=== PATIENT | female | born 1960 | race Caucasian/White ===

== ENCOUNTER 2018-12-01 14:30 | Inpatient (IN) | payer OTHER ==
[2018-11-30 12:17] LABS: URINE BILIRUBIN NEGATIVE (Negative); URINE BLOOD 2+ (Negative); URINE CLARITY CLEAR; URINE COLOR YELLOW; URINE GLUCOSE-RANDOM* 3+ (Negative); URINE KETONES NEGATIVE (Negative); URINE LEUKOCYTES-REFLEX NEGATIVE (Negative); URINE NITRITE-REFLEX NEGATIVE (Negative); URINE PROTEIN (DIPSTICK) NEGATIVE (Negative); URINE SPECIFIC GRAVITY 1.025 (1.005-1.035); URINE UROBILINOGEN 0.2 E.U./dl (0.2-1.0)
[2018-11-30 12:28] LABS: CASTS None Seen /LPF (None Seen); SQUAMOUS 4-10 Moderate /LPF (0-3)
[2018-11-30 12:29] LABS: BACTERIA-REFLEX None Seen /HPF (None Seen); CRYSTALS None Seen /LPF (None Seen); URINE RBC 3-10 Few /HPF (0-2); URINE WBC-REFLEX 0-5 Rare /HPF (0-5)
[2018-11-30 12:53] LABS: ABSOLUTE NEUTROPHILS 3.6 thou/uL (1.4-8.2); BASOPHILS 1.2 % (0.0-2.0); EOSINOPHILS 2.3 % (0.0-3.0); HEMATOCRIT 42.7 % (37.0-47.0); HEMOGLOBIN 14.2 gm/dL (12.0-15.0); LYMPHOCYTES 16.1 % (24.0-44.0); MCH 30.1 pg (26.0-34.0); MCHC 33.2 g/dL (28.0-37.0); MCV 90.7 fL (80.0-100.0); MONOCYTES 6.7 % (1.0-8.0); PLATELET COUNT 200 thou/uL (150-400); POLYS 73.7 % (36.0-66.0); RDW 14.9 % (10.5-14.5); WBC 4.9 thou/uL (4.0-11.0)
[2018-11-30 13:06] LABS: APTT 28.5 Seconds (24.5-32.8); PROTIME 9.9 Seconds (9.3-11.4)
[2018-11-30 13:07] LABS: ALBUMIN 2.6 g/dL (3.4-5.0); CREATININE 0.8 mg/dL (0.6-1.0); POTASSIUM 4.8 mmol/L (3.5-5.1); TOTAL BILIRUBIN 0.2 mg/dL (<0.1-1.0); TOTAL PROTEIN 6.6 g/dL (6.4-8.2)
[~2018-12-01] VITALS: Ht 82.1 cm; Wt 60.5 kg
[~2018-12-01 14:30] MED LIST: ALPRAZOLAM 0.50.5 M1 PO; ALPRAZOLAM 0.50.5 MG PO; ALTACE 1.25 M1.25 M1 PO; ALTACE5 MG PO; AMBIEN 10 MG TA10 MG PO; ASPIRIN EC81 M1 PO; ASPIRIN325 PO; ATORVASTATIN CA40 MG PO; BACTROBAN CREAM30 G1 TOP; BACTROBAN22 GM; BEVESPI AEROS10.7 GM INH; CALCIUM 600 +1 EAC2 PO; CARVEDILOL12.5 MG PO; CARVEDILOL6.25 MG PO; COREG6.25 MG PO; CYMBALTA30 MG PO; CYMBALTA60 MG PO; DILTIAZEM 24HR240 M1 PO; ELIQUIS5 MG PO; HYDROCODON-ACE1 EAC2 PO; KEFLEX500 M1 PO; LANTUS100 UNIT/M PO; LASIX 20 MG TAB20 MG PO; LEVAQUIN 500 M500 M2 PO; LEVEMIR SUBQ; MAGOX 400400 MG PO; METHIMAZOLE5 MG PO; MULTIVITAMINS1 EAC7 PO; NORVASC5 MG PO; NOVOLOG FL100 UNIT/M SUBQ; NOVOLOG100 UNIT/1; NOVOLOG100 UNIT/1 SUBQ; NYSTATIN15 GM; OMEPRAZOLE40 MG PO; PACERONE200 MG PO; PHENERGAN 25 MG25 M1 PO; PRADAXA150 MG PO; PRILOSEC20 MG PO; PRILOSEC40 MG PO; PROAIR HFA8.5 GM INH; SEROQUEL 50 MG50 M1 PO; SERTRALINE HCL100 MG PO; SYNTHROID137 MC1 PO; TAPAZOLE10 MG PO; TRIAMCINOLONE A80 G2 TOP; TYLENOL325 MG PO; ZOLOFT100 MG PO; ZOLOFT50 MG PO
[2018-12-12] VITALS (17 sets, daily range): BP systolic 97–159; BP diastolic 53–79
[2018-12-12 17:38] LABS: HCO3 19.5 mmol/L (22.0-26.0); PCO2 42.8 mmHg (35.0-45.0); PO2 86.9 mmHg (80.0-100.0); sO2 95.5 % (92.0-98.0)
[2018-12-12 17:40] LABS: pH 7.277 (7.360-7.450)
[2018-12-12 17:51] LABS: HEMATOCRIT 39.4 % (37.0-47.0); HEMOGLOBIN 12.9 gm/dL (12.0-15.0); MCHC 32.7 g/dL (28.0-37.0); MCV 91.9 fL (80.0-100.0); RBC 4.29 mil/uL (4.20-5.00); RDW 15.4 % (10.5-14.5); WBC 12.7 thou/uL (4.0-11.0)
[2018-12-12 17:56] LABS: CALCIUM 7.6 mg/dL (8.5-10.1); CREATININE 0.8 mg/dL (0.6-1.0); POTASSIUM 4.5 mmol/L (3.5-5.1)
--- NOTE | 2018-12-12 19:00 | NUR ---
PT RECEIVED IN ICU #238, ON ICU BED WITH SENIOR CONTROLS TECHNICIAN AND ACCOMPANIED BY ROBOTICS SYSTEMS ENGINEER AND TRANSPORTER. REPORT RECEIVED FROM ROBOTICS SYSTEMS ENGINEER. SEE ASSESSMENT FOR DETAILS. EPIDURAL INFUSING WITH INSERTION SITE AND DRESSING INTACT, CIRCULATION, SENSATION AND MOTION PRESENT IN KEYUR LOWER EXTREMITIES, R LATERAL CHEST/BACK DISCOMFORT WHEN AWAKE THEN PT DOZES BACK TO SLEEP WHEN WITHOUT ANY STIMULATION. SR, R RADIAL OSMIN WITH OPTIMAL WAVEFORM, CARDENE 2.5 MG/HR TO KEEP SBP <160, INSULIN GTT 4 UNITS/HR WITH GLUCOSE GOAL 90-130, ROOM AIR INITIALLY THEN PLACED ON 2 L/NC, BREATHING SHALLOW INTERMITTENTLY, TAKING DEEP BREATHS AND COUGH WHILE SPLINTING CHEST/SIDE, TOLERATING ICE CHIPS, RODGERS ADEQUATE URINE OUTPUT. FAMILY PRESENT TO SEE PT, PROVIDING SUPPORT. PT PROGRESSING.
[2018-12-12 21:23] LABS: BE(vivo) -8.6 mmol/L (-2 to +3); HCO3 16.6 mmol/L (22.0-26.0); PCO2 33.8 mmHg (35.0-45.0); PO2 90.5 mmHg (80.0-100.0); sO2 96.3 % (92.0-98.0)
[2018-12-13 01:42] VITALS: BP 100/49
[2018-12-13 01:55] VITALS: BP 93/42
[2018-12-13 06:09] LABS: HEMOGLOBIN 11.4 gm/dL (12.0-15.0); MCH 30.4 pg (26.0-34.0); MCHC 33.6 g/dL (28.0-37.0); MCV 90.6 fL (80.0-100.0); RBC 3.76 mil/uL (4.20-5.00); RDW 15.7 % (10.5-14.5); WBC 9.2 thou/uL (4.0-11.0)
[2018-12-13 06:50] VITALS: BP 101/46
[2018-12-13 06:50] LABS: ALBUMIN 1.9 g/dL (3.4-5.0); CALCIUM 7.2 mg/dL (8.5-10.1); CREATININE 0.7 mg/dL (0.6-1.0); POTASSIUM 3.9 mmol/L (3.5-5.1); TOTAL BILIRUBIN 0.2 mg/dL (<0.1-1.0); TOTAL PROTEIN 5.5 g/dL (6.4-8.2)
--- NOTE | 2018-12-13 07:13 | NUR ---
CLIENT REMAINS IN THE ICU POST RIGHT LOBECTOMY. CLIENT CARE ASSUMED 12/12/18 @ 1900. CLIENT A/O X3 ABLE TO RESPOND TO CARE & DROWSY. CLIENT IS SINUS RHYTHM PER MONITOR. SCD TO BLE, 2L/NC ABD HAS ICE CHIPS FOR DIET ORDERS. RODGERS TO DD AND RIGHT SIDED PLEURAL, Y TUBE, CHEST TUBE. RIGHT RADIAL A-LINE AND RIGHT TJ TLC, LEFT 22" GUAGE PIV. CLIENT IS ON A INSULIN GTT, CARDENE GTT, AND RECEIVING ROPIVACAINE EPIDURAL. AFIBRILE DURING THE NIGHT. PLEASE SEE [employer] FOR ANY ADDITONAL QUESTIONS OR CONCERNS.
[2018-12-13 08:00] VITALS: BP 107/53
--- NOTE | 2018-12-13 09:21 | NUR ---
Nutrition: Consult received due to IDDM, S/P Right lobectomy for lung mass. Pt with good BG control and reports good control/dietary compliance at home, regular dr visits. Stable weights and good appetite. Adequate protein sources encouraged. Mid pannus wound documented which pt reported was from a cyst removal. Pt voices no education needs.Will offer glucerna once daily, low risk
--- NOTE | 2018-12-13 10:45 | NUR ---
SEE ASSESSMENT FOR DETAILS. REPORT GIVEN TO LEONILA CABEZAS. TRANSFERRED TO CCU #211 PER ICU BED WITH RISK PREVENTION ENGINEER.
--- NOTE | 2018-12-13 14:19 | NUR ---
WOUND CONSULT: PT. WAS SEEN TODAY BY DR. MCKENZIE AND MYSELF. PT. HAD A ABCESS I&D BY DR. INTERIANO IN [facility]. 2 WEEKS AGO RIGHT ABOVE THE PUBIC BONE. WOUND BED IS HEALTHY IN APPEARANCE AND HEALING WELL. RECOMMENDATIONS: WOUND CARE TO ABOVE THE PUBIC BONE: GENTLY CLEANSE, APPLY PURACOL AG TO WOUND BED, COVER WITH OPTIFOAM BOARDER, COMPLETE CARES DAILY AND PRN. PT. AND STAFF NURSE WERE INSTRUCTED ON PLAN OF CARE.
[2018-12-13 15:29] VITALS: BP 130/58
--- NOTE | 2018-12-13 17:17 | NUR ---
CM ASSESMENT: CASE OPENED FOR DC PLANNING. PT IS POD #1 THORACOTOMY. PT LIVES WITH SPOUSE IN HOUSE AND INDEPENDENT WITH ADLS. MEDICALLY DISABLED R/T DM AND COMORBIDITIES. PT HAS WALKER AT HOME IF NEEDED. PT IS WORKING WITH P.T. AND RECOMMENDATION IS HOME WITH [facility]. PT'S PCP IS HARITHA LEIVA, ALSO SEES DR. WING AND DR. GEOFF COVINGTON. WILL FOLLOW TO COORDINATED NEEDS DC, POSSIBLE HOME HEALTH.
--- NOTE | 2018-12-13 18:21 | NUR ---
ARRIVED FROM ICU ABOUT 1045. AAOX3 VERY PLEASANT AND COOPERATIVE. EPIDURAL AT 9ml/hr transparent dressing dry and intact. RIGHT THORACOTOMY DRESSING DRY AND INTACT. RIGHT CT X2 TO OASIS WITH SUCTION NO AIR LEAK NOTED. O2 AT 2L. UP WITH PHYSICIAL THERAPY AND UP FOR DINNER TO RECLINER. GOOD APPETITE. RIGHT JUGULAR TRIPLE LUMEN INTACT WITH NS AT 75CC/HR. GIVEN FENTANYL X2 FOR BREAK THROUGH PAIN.
[2018-12-13 19:23] VITALS: BP 91/51
[2018-12-14] VITALS (7 sets, daily range): BP systolic 108–159; BP diastolic 57–76
--- NOTE | 2018-12-14 03:13 | NUR ---
ASSUMED CARE 1899. VSS. ASSESSMENT CHARTED. PT C/O NON CARDIAC CHEST PAIN, EPIDURAL IN PLACE CDI WITH ROPIVACAINE AT 9 ML/HR, PARTIAL PAIN CONTROL. BP LOW PT SLIGHTLY DIZZY IN CHAIR, ASYMPTOMATIC IN BED , DR FAM AT BEDSIDE NOTIFIED, ORDERS GIVEN- HOLDING PM HEART MEDS, PT STATED HER SERAQUIL DROPS HER BP PM HELD- SEE EMAR. ANESTHISIA CAME TO PT BEDSIDE WAS OKAY TO KEEP ROPIVACAINE AT 9 ML/HR DUE TO BP, NS AT 75 ML/HR. CT X2 IN PLACE NO AIR LEAK, SLIGHT DRAINAGE AROUND DRESSING DR FAM PRESENT. RODGERS IN PLACE. 2 L N/C. X1 STAND BY. PLAN FOR EKG THIS AM. WILL CONTINUE TO MONITOR AND WITH POC.
[2018-12-14 11:01] LABS: HEMATOCRIT 36.6 % (37.0-47.0); HEMOGLOBIN 12.2 gm/dL (12.0-15.0); MCH 30.4 pg (26.0-34.0); MCHC 33.4 g/dL (28.0-37.0); MCV 91.1 fL (80.0-100.0); RBC 4.01 mil/uL (4.20-5.00); RDW 15.8 % (10.5-14.5); WBC 10.1 thou/uL (4.0-11.0)
[2018-12-14 11:12] LABS: CALCIUM 7.6 mg/dL (8.5-10.1); CREATININE 0.8 mg/dL (0.6-1.0); POTASSIUM 4.3 mmol/L (3.5-5.1)
--- NOTE | 2018-12-14 15:42 | NUR ---
WOUND FOLLOW UP: PT. WAS SEEN TODAY BY DR. MCKENZIE AND MYSELF. PT. WOUND IS C/D/I AT THIS TIME. PT. HAS NO COMPLAINTS. RECOMMENDATIONS: CONTINUE WITH CURRENT PLAN OF CARE. PT. AND STAFF NURSE WERE INSTRUCTED ON PLAN OF CARE.
--- NOTE | 2018-12-14 17:13 | EKG ---
[address] [place] [place] [address] ELECTROCARDIOGRAM REPORT Name: HIRAM JC Room #: 211-P ADM IN M.R.#: [id number] ������������������ Admission: 12/12/18 ������������������ Attend Phys: Dimitrios Valles MD Discharge: ������������������ Date of : 64 Report #: [id number] ����������������������������������������������������������������� [id number] THIS REPORT FOR: //name// [facility] Test Date: 2018-12-14 Test Time: 07:09:05 Pat Name: HIRAM JC Department: Room: 211 P Gender: F Fence Machine Operator: ANNA : 1960 Requested By: Onesimo Reece Order Number: [id number] MD: Enoch Baeza Measurements Intervals [place] Rate: 78 P: 51 [place]: 160 QRS: 62 QRSD: 116 T: -5 QT: 407 QTc: 464 Interpretive Statements Sinus rhythm Nonspecific T wave abnormality Compared to ECG 08/17/2016 18:13:35 No significant change was found Electronically Signed On 12-14-2018 17:13:31 CDT by Enoch Baeza [email or web address] ��������������������������������������������� <ELECTRONICALLY SIGNED> ���������������������������������������� By: Enoch Baeza MD, [facility] ��������������������������������������������� 12/14/18 1713 8 8 Enoch Baeza MD, [facility]ACC /EPI
--- NOTE | 2018-12-14 17:52 | NUR ---
SW reviewed chart and spoke with nursing. Pt is POD #2 of thoracotomy. Pt is progressing towards goals for discharge. Discharge home is anticipated for tomorrow. ISRAEL met with pt at bedside to discuss discharge plan. SW discussed possible need for HH services. Options discussed with pt. Pt is agreeable with HH if needed. No preference of HH agency. interstate planner to fax referral to [facility] tomorrow. Pt's PCP is Dr. Robert Humphries. Pt is currently on 1L of O2. Was not on O2 prior to admission. ISRAEL is following to assist as needed with discharge planning.
[2018-12-15 03:38] VITALS: BP 155/85
--- NOTE | 2018-12-15 04:16 | NUR ---
PT. ON CHAIR AT SHIFT CHANGE; NO C/O PAIN EARLY ON THE NIGHT OR DURING ASSESSMENT; ON 1.5 O2 L.; O2 SAT 99%; ABLE TO VOID AROUND 2300; 275 CC; DROWSY AT MIDNIGHT; VS WNL; ABLE TO REST DURING THE NIGHT; REQUESTED PRN PAIN MEDICATION EARLY ON THE MORNING; PRN PAIN MEDICATION GIVEN; ASSESSMENT CHARGED; FOLLOWING POC; WILL PASS ON REPORT.
[2018-12-15 08:11] VITALS: BP 152/71
[2018-12-15 09:38] VITALS: BP 127/45
--- NOTE | 2018-12-15 12:04 | NUR ---
FAXED REFERRAL TO [facility] SPOKE WITH MARV IN ADM. SHE WILL REVIEW REFERRAL ANTICIPATE DC 12/16. DCP TO FOLLOW.
[2018-12-15 12:09] VITALS: BP 113/49
--- NOTE | 2018-12-15 12:18 | NUR ---
SW reviewed chart and spoke with nursing and attending physician. Pt is progressing towards goals for discharge. Pt does still have chest tube in place. Pt still requires O2. internet media planner sent info to [facility] . Discharge plan is for pt to return home with HH when medically stable. ISRAEL is following to assist as needed with discharge planning.
--- NOTE | 2018-12-15 13:18 | NUR ---
ASSUMED CARE AT 0700, SHIFT ASSESSMENT DONE, VSS. MEDS GIVEN. REPROTED PAIN TO SITE OF CHEST TUBE INSERTION, PRN PAIN MED GIVEN WITH PARTIAL RELIEF. ABLE TO TAKE ORAL MEDS. NSR ON TELE. WORKED WITH PHYSICAL THERAPHY, TIRED AND WEAK. PRODUCING SEROSANGUINIOUS DRANAGE THROUGH THE CHEST TUBE. PATIENT IS SUPPOSED TO GO TO OR FOR CHEST TUBE REMOVAL. WILL CONTINUE TO ASSESS AND ASSIST WITH ADLs NEEDED.
--- NOTE | 2018-12-15 14:00 | NUR ---
WOUND FOLLOW UP: PT. WAS SEEN TODAY BY DR. MCKENZIE AND MYSELF. PT. WOUND IS CLINICALLY BETTER TODAY. PT. IS PROGRESSING TOWARDS GOALS. RECOMMENDATIONS: CONTINUE WITH CURRENT PLAN OF CARE. PT. AND STAFF NURSE WERE INSTRUCTED ON PLAN OF CARE.
[2018-12-15 14:41] VITALS: BP 102/48
--- NOTE | 2018-12-15 15:24 | NUR ---
FAXED REFERRAL TO [facility] THEY COVER TIFFANY QUEZADA SPOKE WITH CORINE IN ADM. SHE RECEIVED REFERRAL AND WILL BE ABLE TO ACCEPT PT. AT DISCHARGE. POSS. DC TOMORROW. DCP TO FOLLOW.
--- NOTE | 2018-12-15 15:29 | NUR ---
PT. DISCHARGING TODAY TO [facility] FAXED DC ORDERS/SUMMARY TO FACILITY AND SPOKE WITH WEN IN ADM. SHE RECEIVED DC ORDERS AND SET UP TRANSPORT WC [facility] AT [phone]. SON AND UNIT NOTIFIED OF TIME OF TRANSPORT. CHART COPY PER US. RN TO CALL REPORT TO [phone].
--- NOTE | 2018-12-15 17:07 | PATH ---
[facility] [place] [address] PATHOLOGY RPT PROCEDURE Name: LUANA DALEY Cedric Room #: 211-P ADM IN M.R.#: [id number] ������������������ Admission: 12/12/18 ������������������ Date of : 64 Discharge: Report #: [id number] Path Case #: [id number] [facility] Accession Number: [id number] . 01 Material submitted: . PART A: 4 R LYMPH NODES PART B: RIGHT UPPER LUNG LOBE LESION BIOPSY PART C: RIGHT HILAR LYMPH NODES PART D: RIGHT UPPER LOBE LUNG PART E: SECOND HILAR NODE PART F: THIRD HILAR NODE PART TH HILAR NODE PART H: 5TH HILAR NODE PART I: 6TH HILAR NODE PART J: 7TH HILAR NODE PART K: 8TH HILAR NODE PART L: 9TH HILAR NODE . 01 Clinical history: . Right Lung Mass Lung cancer . 02 Diagnosis: A. Lymph nodes (fragments), 4R lymph nodes, biopsy: - Granulomatous inflammation with a focal well formed hyalinizaed granuloma as well as reactive changes showing histoplasma species on GMS fungal special stain. - AFB stain negative for mycobacterial organisms. - Negative for malignancy. . B. Lung, right upper lobe lung lesion, biopsy: - POORLY DIFFERENTIATED CARCINOMA WITH LARGE CELL FEATURES AND FOCAL NEUROENDOCRINE FEATURES (PLEASE SEE COMMENT). . C. Lymph nodes (fragments), right hilar lymph nodes, biopsy: - Reactive lymph nodes with pigmented macrophages. - Negative for malignancy. . D. Lung, right upper lobe of lung, lobectomy: - POORLY DIFFERENTIATED CARCINOMA WITH LARGE CELL FEATURES AND FOCAL NEUROENDOCRINE FEATURES (PLEASE SEE COMMENT), SEE SYNOPTIC REPORT BELOW. - Bronchial and vascular margin free of malignancy; closest bronchial margin is 1 cm away. . E. Lymph node (1), second hilar node, biopsy: - Reactive lymph node with pigmented macrophages. - Negative for malignancy. . [facility] [address] [place] [address] PATHOLOGY RPT PROCEDURE Name: LUANA DALEY Cedric Room #: 211-P ADM IN M.R.#: [id number] ������������������ Admission: 12/12/18 ������������������ Date of : 64 Discharge: Report #: [id number] Path Case #: [id number] F. Lymph node (fragments), third hilar node, biopsy: - Reactive lymph nodes with pigmented macrophages. - Negative for malignancy. . G. Lymph node (fragment), fourth hilar node, biopsy: - Reactive lymph node with pigmented macrophages. - Negative for malignancy. . H. Lymph node (fragment), fifth hilar node, biopsy: - Reactive lymph node with pigmented macrophages. - Negative for malignancy. . I. Lymph node (fragments), sixth hilar node, biopsy: - Reactive lymph nodes with pigmented macrophages. - Negative for malignancy. . J. Lymph node (fragment), seventh hilar node, biopsy: - Reactive lymph node with pigmented macrophages. - Negative for malignancy. . K. Lymph node (fragment), eighth hilar node, biopsy: - Reactive lymph node with pigmented macrophages. - Negative for malignancy. . L. Lymph node (fragment), ninth hilar node, biopsy: - Reactive lymph node with pigmented macrophages. - Negative for malignancy. . . Surgical Pathology Cancer Case Summary . Protocol posting date: February 2017 . 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 Histologic Grade- G3: Poorly differentiated Spread Through Air Spaces- Present Visceral Pleura Invasion- Not identified Lymphovascular Invasion- Not identified Direct Invasion of Adjacent Structures- No adjacent structures present Margins- All margins are uninvolved by tumor Margins examined: Bronchial, Vascular and Visceral Pleura Distance of invasive carcinoma from closest margin (centimeters): [address] [address] PATHOLOGY RPT PROCEDURE Name: LUANA DALEY Cedric Room #: 211-P [facility].#: [id number] ������������������ Admission: 12/12/18 ������������������ Date of : 64 Discharge: Report #: [id number] Path Case #: [id number] Specify closest margin: Bronchial Treatment Effect- No known presurgical therapy Regional Lymph Nodes- Number of Lymph Nodes Examined: 10 Specify bryan station(s) examined: Hilar nodes . Pathologic Stage Classification (pTNM, AJCC 8th Edition) . TNM Descriptors- None Primary Tumor (pT) pT1c: Tumor >2 cm but =3 cm in greatest dimension Regional Lymph Nodes (pN) pN0: No regional lymph node metastasis Distant Metastasis (pM): pMx (unknown) LBQ/12/15/2018 . 02 Comment: Examination of the needle core biopsy tissue showed a tumor that appeared poorly differentiated in sheets associated with numerous apoptotic bodies as well as mitotic figures. Central areas of expansile necrosis are present as well. Focal organoid features are identified. Immunohistochemical stains are performed on block B1. TTF-1, p63, Napsin A, and chromogranin are non-reactive. AE1/AE3 as well as CK7 showed membranous reactivity in addition to focal dot-like reactivity. Synaptophysin shows focal granular reactivity present supporting focal neuroendocrine features. . TTF-1 and synaptophysin are repeated on block D4 (to examine the immunohistochemistry in a larger focus of the tumor). The tumor is non-reactive to TTF-1. Intact internal control is present in the background with the alveolar spaces showing TTF-1 reactivity. Synaptophysin shows scant reactivity present. Mucicarmine is non-reactive thus arguing against an adenocarcinoma. Therefore, the tumor is highly suggestive of a poorly differentiated carcinoma with large cell morphology and focal neuroendocrine features. Dr. Leslee Che has seen international sales representative slides of this case and concurs with the diagnosis rendered. The preliminary findings of this case were discussed with Dr. Dimitrios Valles at approximately 4 p.m. on 12/13/18. (IUV/db; 12/15/2018) . 02 Electronically signed: . Tenisha Zabala MD, Pathologist NPI- [id number] . 01 Gross description: . A. Specimen received fresh from the OR labeled with the patient's name and "4 R lymph nodes", consists of multiple red-dey fragments of tissue measuring an aggregate of 0.5 x 0.5 x 0.3 cm. Submitted entirely for frozen section as FSA1, subsequently submitted for permanent section as [facility] [address] [place] [address] PATHOLOGY RPT PROCEDURE Name: LUANA DALEY Room #: 211-P ADM IN M.R.#: [id number] ������������������ Admission: 12/12/18 ������������������ Date of : 64 Discharge: Report #: [id number] Path Case #: [id number] A1. . B. Received fresh from the OR labeled with the patient's name and "right upper lung lobe lesion biopsy" and consists of three thin needle core biopsies of red-dey tissue measuring approximately 1 to 1.5 x 0.1 x 0.1 cm each. Submitted for frozen section entirely as FSB1, subsequently submitted for permanent sections as B1. (IUV:pit 12/12/2018) . C. The specimen is received in formalin, labeled "Luana Daley, right hilar lymph nodes", is an irregular fragment of possible anthracotic lymph node measuring 0.8 x 0.7 x 0.2 cm, bisected and entirely submitted in C1. ([facility]; 12/12/2018) . D.The specimen is received in formalin, labeled " Luana Daley, right upper lobe lung", is infused with 10% NBF and held overnight. ([facility]; 12/13/2018) . The specimen is grossed after overnight fixation and consists of a 206 g right upper lobe of lung with a 0.5 cm long bronchovascular stump. 2 stapled linear lines are present on the posterior aspect measuring 10.5 cm and 2.0 cm. The visceral pleura shows a 1.5 x 1.4 cm area of retraction (inked black) which extends 1.3 cm from the 10.5 cm stapled line. The rest of the visceral pleura is brown and intact. The long staple line is removed and inked blue. The main branch of the bronchus is opened to reveal no abnormality. Serial sectioning reveals a white circumscribed mass with central necrosis measuring 2.9 x 2.0 x 1.6 cm which extends 1.0 cm from the hilar bronchial margin. The uninvolved lung parenchyma has mild consolidation and is spongy red. No additional discrete masses, lesions, or lymph node candidates are identified. Mechanical Project Engineer sections are submitted as follows: . D1: Hilar bronchial vascular resection margin D2: Mass to bronchial margin D3: Mass to bronchus including blue inked staple resection line D4: Mass showing the black inked retraction of pleural surface D5: Full-thickness mass D6-D7: Uninvolved parenchyma showing mild consolidation ([facility]; 12/13/2018) . After initial microscopic examination the remainder of the mass is submitted in D8-D13. ([facility]Y; 12/14/2018) . E. The specimen is received in formalin, labeled "Edi Luana, second hilar node", is an irregular fragment of possible anthracotic lymph node measuring 1.1 x 0.5 x 0.3 cm, serially sectioned and entirely submitted in [address] [address] PATHOLOGY RPT PROCEDURE Name: EDILUANA Room #: 211-P ADM IN M.R.#: [id number] ������������������ Admission: 12/12/18 ������������������ Date of : 64 Discharge: Report #: [id number] Path Case #: [id number] E1. . F. The specimen is received in formalin, labeled "Luana Daley, third hilar node", are two irregular fragments of black-brown tissue measuring 0.4 x 0.3 x 0.1 cm and a 0.6 x 0.5 x 0.2 cm, entirely submitted in F1. . G. The specimen is received in formalin, labeled "Luana Daley, fourth hilar node", is an irregular fragment of a black-brown tissue measuring 0.5 x 0.4 x 0.2 cm, entirely submitted in G1. . H. The specimen is received in formalin, labeled "Luana Daley, fifth hilar node", is an irregular fragment of dark brown-black tissue measuring 1.0 x 0.8 x 0.3 cm, serially sectioned and entirely submitted in H1. . I. The specimen is received in formalin, labeled "Luana Daley, sixth hilar node", are two irregular fragments of dark black-brown tissue measuring 0.3 x 0.2 x 0.1 cm and 1.0 x 0.3 x 0.1 cm, entirely submitted in I1. . J. The specimen is received in formalin, labeled "Luana Daley, seventh hilar node", is an irregular fragment of dark black-brown tissue measuring 1.0 x 0.6 x 0.2 cm, serially sectioned and entirely submitted in J1. . K. The specimen is received in formalin, labeled "Luana Daley, eigth hilar node", is an irregular fragment of dark brown to black tissue measuring 0.5 x 0.4 x 0.2 cm, entirely submitted in K1. . L. The specimen is received in formalin, labeled "Luana Daley, 9, hilar node", is an irregular fragment of dark brown to black tissue measuring 0.8 x 0.4 x 0.2 cm, entirely submitted in L1. ([facility]; 12/12/2018) . FROZEN SECTION DIAGNOSIS: (Tenisha Zabala) . FSA1, 4 R lymph nodes, biopsy: - Granulomatous inflammation, well-formed granuloma and reactive changes. - These findings are discussed with Dr. Dimitrios Valles and a written report is placed in the patient's chart . FSB1, Right upper lung lobe lesion biopsy: - Positive for malignancy. - These findings are discussed with Dr. Dimitrios Valles in OR #7 at [facility] and a written report is placed in the patient's chart. (IUV:pit 12/12/2018) . Frozen section performed at [facility], [address] [place] [address] PATHOLOGY RPT PROCEDURE Name: LUANA DAELY Room #: 211-P ADM IN .R.#: [id number] ������������������ Admission: 12/12/18 ������������������ Date of : 64 Discharge: Report #: [id number] Path Case #: [id number] [place] [address]. SYU/QTP . 02 Pathologist provided ICD-10: C34.11, J84.10, B39.2 . 02 CPT . 612581, 711399, 586738, 592438, 580827, C83710, X51037, 488062 Specimen Comment: A courtesy copy of this report has been sent to Specimen Comment: [phone], . Specimen Comment: Report sent to / DR LEIVA Performed at: [address], [place], [place] [id number] MD Albert Feliz MD Phone: [phone] Performed at: [address] [id number] MD Tenisha Zabala MD Phone: [phone]
--- NOTE | 2018-12-15 18:00 | EKG ---
[place] [address] [address] [place] [address] ELECTROCARDIOGRAM REPORT Name: HIRAM JC Room #: 211-P ADM IN M.R.#: [id number] ������������������ Admission: 12/12/18 ������������������ Attend Phys: Steffen Mustafa MD Discharge: ������������������ Date of : 64 Report #: [id number] ����������������������������������������������������������������� [id number] THIS REPORT FOR: //name// [facility] Test Date: 2018-12-15 Test Time: 07:17:56 Pat Name: HIRAM JC Department: Room: 211 P Gender: F Direct Care Counselor: ANNA : 1960 Requested By: Ida Mccracken Order Number: [id number] MD: Enoch Baeza Measurements Intervals [place] Rate: 79 P: 55 [place]: 144 QRS: 72 QRSD: 107 T: -9 QT: 405 QTc: 465 Interpretive Statements Sinus rhythm Low voltage, extremity and precordial leads Compared to ECG 12/14/2018 07:09:05 Premature ventricular complexes no longer present Electronically Signed On 12-15-2018 17:59:50 CDT by Enoch Baeza [email or web address] ��������������������������������������������� <ELECTRONICALLY SIGNED> ���������������������������������������� By: Enoch Baeza MD, [facility] ��������������������������������������������� 12/15/18 5369 07 6 Enoch Baeza MD, [facility] /EPI
--- NOTE | 2018-12-15 19:21 | NUR ---
CHEST TUBE WAS PULLED OUT AT 1500, PATEINT REPROTS PAIN 0/10. DRESSING AT CHEST TUBE SITE C/D/I. REPROT GIVEN TO NIGHT NURSE. REPORT GIVEN TO NIGHT NURSE.
--- NOTE | 2018-12-15 19:39 | NUR ---
DR BELTRÁN FROM [facility] CALLED THIS AFTERNOON AND INDICATED THAT AFTER THE CHEST TUBE WAS PULLED OUT, PATIENT DEVELOPED A TINY RIGHT PNEUMOTHORAX. DR BELTRNÁ ASKED THIS NURSE TO NOTIFY PHYSICANS, DR REARDON WAS INFORMED AND HE ASKED THIS NURSE TO CALL DR WHITNEY. DR FAM WAS PAGED AND HE CALLED BACK AND ACKONWLEDGED ABOUT RECEVING THE INFORMATION.
[2018-12-15 20:15] VITALS: BP 143/76
[2018-12-16] VITALS (8 sets, daily range): BP systolic 101–143; BP diastolic 54–67
--- NOTE | 2018-12-16 04:06 | NUR ---
ASSUME CARED ABOUT 1905; PT. ON BED; ST. FEELING BETTER; DURING ASSESSMENT NO C/O PAIN; REFUSED MELATONIN SINCE ABLE TO REST WITH NO PROBLEM; O2 SAT 94% ON ROOM AIR; REMOVED NC; ABLE TO REST THROUGH THE NIGHT WITH EYES CLOSE; VS WNL; ASSESSMENT CHARGED; FOLLOWING POC; WILL PASS ON REPORT.
[2018-12-16 05:09] LABS: ABSOLUTE NEUTROPHILS 4.6 thou/uL (1.4-8.2); BASOPHILS 0.6 % (0.0-2.0); EOSINOPHILS 3.6 % (0.0-3.0); HEMATOCRIT 34.8 % (37.0-47.0); HEMOGLOBIN 11.8 gm/dL (12.0-15.0); LYMPHOCYTES 19.1 % (24.0-44.0); MCH 30.7 pg (26.0-34.0); MCHC 33.9 g/dL (28.0-37.0); MCV 90.6 fL (80.0-100.0); MONOCYTES 5.2 % (1.0-8.0); PLATELET COUNT 215 thou/uL (150-400); POLYS 71.5 % (36.0-66.0); RBC 3.83 mil/uL (4.20-5.00); RDW 15.7 % (10.5-14.5); WBC 6.5 thou/uL (4.0-11.0)
[2018-12-16 05:24] LABS: CALCIUM 7.9 mg/dL (8.5-10.1); CREATININE 0.6 mg/dL (0.6-1.0); MAGNESIUM 1.9 mg/dL (1.8-2.4); POTASSIUM 3.7 mmol/L (3.5-5.1)
--- NOTE | 2018-12-16 13:34 | HC ---
[facility] [place] [address] [address] CONSULTATION Name: HIRAM JC Room #: 211-P [facility] IN M.R.#: [id number] Admission: 12/12/18 ������������������ Attend Phys: Steffen Mustafa MD Discharge: ������������������ Date of : 64 Report #: [id number] THIS REPORT FOR: //name// CC: Robert Mustafa DATE OF SERVICE: 12/13/2018 CHIEF COMPLAINT: Surgical wound to the suprapubic region. HISTORY OF PRESENT ILLNESS: This is a 58-year-old female patient, transferred here from [facility]. She has a history of diabetes mellitus as well as a history of coronary artery disease. She was transferred here after developing DKA and some chest pain and was noted to have a right upper lobe pulmonary nodule that was suggestive of malignancy. She underwent bronchoscopy, mediastinoscopy and right thoracotomy with upper lobectomy on 12/12/2018. She also has had a small abscess to the suprapubic area. She has undergone a surgical incision in that area, and I have been asked to see her with regard to wound care following that procedure. ALLERGIES: THE PATIENT HAS ALLERGIES TO PENICILLIN, POSSIBLY LASIX. SOCIAL HISTORY: The patient has a history of smoking a pack of cigarettes per day. No alcohol use. FAMILY HISTORY: Positive for coronary artery disease. REVIEW OF SYSTEMS: CONSTITUTIONAL: The patient denies fever, chills or weight loss. NEUROLOGIC: The patient denies focal weakness, numbness or tingling. EYES: The patient denies visual changes, redness or drainage. ENT: The patient denies earache, nasal drainage or sore throat. CARDIOVASCULAR: The patient denies chest pain currently. He did have chest discomfort prior to admission. PULMONARY: The patient complains of mild shortness of breath and some chest discomfort associated with her postoperative stay from her upper lobectomy. GASTROINTESTINAL: The patient denies nausea, vomiting, diarrhea or abdominal pain. ORTHOPEDIC: The patient is aware of the surgical wound to the suprapubic region. Other systems in a 14-point review of systems are negative. PHYSICAL EXAMINATION: VITAL SIGNS: At this time include temperature 98.0, pulse 63, respiratory rate of 18 and blood pressure 91/51. GENERAL: This is a chronically ill-appearing female patient, who appears to be in minimal distress. [address] [address] CONSULTATION Name: HIRAM JC Room #: 211-P [facility] IN M.R.#: [id number] Admission: 12/12/18 ������������������ Attend Phys: Steffen Mustafa MD Discharge: ������������������ Date of : 64 Report #: [id number] HEENT: Head normocephalic. Nose and throat are clear. NECK: Supple. LUNGS: Diminished. She has surgical bandages in place on her chest wall. ABDOMEN: Soft, nontender. Suprapubic region demonstrates what appears to be a small surgical wound, likely from the incision and drainage of a small abscess. There is a small cavity present, with no tunneling or undermining noted at this time. NEUROLOGIC: The patient is alert, oriented and appropriate. CLINICAL IMPRESSION: Surgical wound to the suprapubic region. RECOMMENDATIONS: At this point in time, we will pack this area with Puracol Plus and cover with a bordered foam. This can be changed on an every other day basis. We will recommend continuing her current medications and needing aggressive nutritional support to maximize wound healing and maintaining glycemic control. I appreciate being asked to see her in consultation. ��������������������������������������������� <ELECTRONICALLY SIGNED> ���������������������������������������� By: Andre Pope MD ��������������������������������������������� 12/16/18 1334 [id number] Andre Pope MD /nt
--- NOTE | 2018-12-16 13:38 | NUR ---
If patient to discharge home over weekend please call Home Health Agency to alert of discharge. [facility] [phone] and fax orders to [phone].
--- NOTE | 2018-12-16 18:49 | NUR ---
ASSULMED CARE OF PT AT 0700. PT A&OX4, UP WITH WALKER. PT AMBULATING HALLWAY AND GETTING UP TO CHAIR. PT VITALS WITHIN NORMAL LIMITS AND PT IS SINUS RHYTHM ON TELEMETRY. PT TOLERATING ROOM AIR. DENIES PAIN THIS SHIFT. BRYSON SANTIAGO, REMOVED PT'S CENTRAL LINE. WILL CONT WITH POC.
[2018-12-17 04:07] VITALS: BP 119/59
--- NOTE | 2018-12-17 04:31 | NUR ---
ASSUMED PT CARE AT 1900. PT A/OX4, VITAL SIGNS STABLE, ASSESSMENT CHARTED. NO COMPLAINTS OF CHEST PAIN. PT MENTION SOME PAIN ON INCISSION SITE WITH ACTIVITY BUT DID NOT WANT AYTHING FOR PAIN IT RESOLVED SOON SHE WAS CONFORTABLE IN BED. NO COMPLAINTS OF SOA. PT RESTED WELL THROUGH THE NIGHT. PROGRESSING TOWARD PLAN OF CARE. WILL CONTINUE TO MONITOR.
[2018-12-17 08:40] VITALS: BP 139/75
[2018-12-17 12:00] VITALS: BP 122/63
[2018-12-17] MEDS ORDERED: HYDROCODON-ACE1 EAC7 PO (12:24)
[2018-12-17 13:24] VITALS: BP 137/65
--- NOTE | 2018-12-17 13:33 | NUR ---
PT CARE ASSUMED APPROX 0700. PT ALERT AND ORIENTED X4. DENIES PAIN AND SOA. VSS. BS LOW THIS AM. GIVEN D50 AND THEN PT HYPERGLYCEMIC. SSI GIVEN AC LUNCH. PT IS A DIABETIC AND REPORTS KNOWING WHEN AND WHAT TO DO FOR HYPOGLYCEMIA. ALL DRS HAVE ROUNDED AND APPROVE PT FOR DISCHARGE. DR FAM REPORTS THAT OUTPT F/U WITH ONCOLOGY OR PULM WILL BE ARRANGED BY HIM AT PT'S F/U APPT WITH HIM. DISCHARGE PAPERWORK REVIEWED WITH PT AND SPOUSE. BOTH DENY QUESTIONS OR CONCERNS REGARDING DISCHARGE MEDS, F/U APPTS, ACTIVITY RESTRICTIONS, INCISION/SKIN CARE, DIET AND GENERAL POST HOSPITAL CARES. IV OUT, TELE BOX OFF. PT'S PRESENT TO PROVIDE TRANSPORTATION HOME. HOME HEALTH AGENCY NOTIFIED.
--- NOTE | 2018-12-19 09:49 | NUR ---
PT. DISCHARGED TO HOME WITH [facility] 12/17 DCP FAXED DC ORDERS/SUMMARY SPOKE WITH CORINE AT [facility] AND SHE RECEIVED AND WILL NOTIFY PT. OF TIME OF VISITS.
--- NOTE | 2018-12-20 19:21 | O ---
[facility] [place] [address] [address] [place] [address] OPERATIVE REPORT Name: HIRAM JC Room #: 211-P [facility] IN M.R.#: [id number] Admission: 12/12/18 ������������������ Attend Phys: Steffen Mustafa MD Discharge: 12/17/18 ������������������ Date of : 64 Report #: [id number] THIS REPORT FOR: //name// CC: Robert Valles DATE OF SERVICE: 12/12/2018 PREOPERATIVE DIAGNOSIS: Right upper lobe pulmonary nodule. POSTOPERATIVE DIAGNOSIS: Right upper lobe pulmonary nodule suggestive of malignancy. OPERATION: Bronchoscopy, mediastinoscopy, right thoracotomy with upper lobectomy. SURGEON: Dimitrios aVlles MD STONE LAYER: BRYSON Tovar ANESTHESIA: General. INDICATIONS: The patient is a 58-year-old seen for Dr. Newton Morgan. The patient is from [place] where a right upper lobe pulmonary nodule was identified. CT scan also showed a 1 cm pretracheal lymph node. PET scan was not possible due to persistently elevated glucose levels. Pulmonary function showed mild obstructive and restrictive disease. FINDINGS AND TECHNIQUE: After general anesthesia was established, flexible diagnostic bronchoscopy was performed. There were scattered thick white secretions, but no endobronchial lesions were noted. The patient was positioned, prepped and draped for mediastinoscopy. A low collar incision was made, pretracheal space was entered. A large pretracheal node in station 4R was identified and submitted for frozen section. No other significant adenopathy was identified. Frozen section was negative for cancer. Hemostasis was ascertained. The wound was closed in layers. A double lumen endotracheal tube was placed and its position checked with bronchoscopic guidance. The patient was positioned with right side up. Exposure was obtained through a posterolateral thoracotomy using a rib sparing and nerve sparing approach through the fifth interspace. A core biopsy of the upper lobe lesion was done and this was positive for malignancy. [address] [address] OPERATIVE REPORT Name: HOSEAHIRAM L Room #: 211-P [facility] IN [facility].#: [id number] Admission: 12/12/18 ������������������ Attend Phys: Steffen Mustafa MD Discharge: 12/17/18 ������������������ Date of : 64 Report #: [id number] At this point, right upper lobectomy was performed. The incomplete fissures were expanded to expose the upper lobe bronchus and the node between it and the bronchus intermedius. Dissection around the hilum allowed us to divide branches of the truncus anterior to the upper lobe. Pulmonary vein was isolated and ligated and divided. The fissure was completed with serial application of the stapler. The bronchus was circumdissected and stapled and the remaining branch of the truncus anterior to the upper lobe was stapled and divided. The lobe was submitted for pathologic consideration. Bronchial stump was tested and found to be secure. Middle lobe was tacked to lower lobe to prevent torsion. Pulmonary ligament was divided. The hilar structures were dissected to complete a hilar lymph node dissection. When hemostasis was satisfactory, the chest was closed to preserve the rib sparing, nerve sparing approach. Two chest tubes were brought through separate stab wounds. The chest was closed in layers. The patient was taken in the usual fashion. The patient was taken to the recovery area in good condition, having tolerated the procedure well. It should be noted that an epidural catheter was placed prior to surgery. All counts were reported as correct. ��������������������������������������������� <ELECTRONICALLY SIGNED> ���������������������������������������� By: Dimitrios Valles MD ��������������������������������������������� 12/20/18 1921 1432 1501 Dimitrios Valles MD /nt
== END 2018-12-17 14:08 | disposition home health service (06) | DRG 163 ==
LOC: PRE 14:30 → 2N 12-12 05:30 → ICU 12-12 05:30 → TBA 12-12 05:30 → PRE 12-12 09:42 → ICU 12-12 16:43 → 2N 12-13 10:45
PROVIDERS: Nurse Practitioner; Nurse Practitioner Adult Health; Physician Assistant; Surgery Vascular Surgery; ADMIT Internal Medicine
DX: C34.11 Malignant neoplasm of upper lobe, right bronchus or lung (principal); E43 Unspecified severe protein-calorie malnutrition; R91.1 Solitary pulmonary nodule; I25.10 Atherosclerotic heart disease of native coronary artery without angina pectoris; E11.51 Type 2 diabetes mellitus with diabetic peripheral angiopathy without gangrene; I10 Essential (primary) hypertension; E78.00 Pure hypercholesterolemia, unspecified; I48.0 Paroxysmal atrial fibrillation; I25.5 Ischemic cardiomyopathy; I34.1 Nonrheumatic mitral (valve) prolapse; E11.65 Type 2 diabetes mellitus with hyperglycemia; E03.9 Hypothyroidism, unspecified; J44.9 Chronic obstructive pulmonary disease, unspecified; M19.90 Unspecified osteoarthritis, unspecified site; Y83.8 Other surgical procedures as the cause of abnormal reaction of the patient, or of later complication, without mention of misadventure at the time of the procedure; Y92.89 Other specified places as the place of occurrence of the external cause; Z95.1 Presence of aortocoronary bypass graft; Z87.891 Personal history of nicotine dependence; Z79.01 Long term (current) use of anticoagulants; Z79.4 Long term (current) use of insulin; Z79.82 Long term (current) use of aspirin; Z79.899 Other long term (current) drug therapy; Z88.0 Allergy status to penicillin; Z91.040 Latex allergy status; Z82.49 Family history of ischemic heart disease and other diseases of the circulatory system
CPT/HCPCS: 10078; 10081; 47405; 50010; 50101; 50386; 50403; 50455; 50497; 50739; 50740; 51046; 51301; 53326; 54022; 54118; 56524; 56525; 56526; 56527; 56528; 62110; 62900; 65020; 65040; 65045; 65075; 65105; 65129; 65130; 70005

== ENCOUNTER → 2020-02-22 | Outpatient (CLI) | payer OTHER ==
[~2020-02-22] MED LIST changes: +HYDROCODON-ACE1 EAC7 PO
== END ==
LOC: SJCVCIMAG 02-21 13:26
DX: I08.1 Rheumatic disorders of both mitral and tricuspid valves (principal); I25.10 Atherosclerotic heart disease of native coronary artery without angina pectoris; E78.00 Pure hypercholesterolemia, unspecified; I10 Essential (primary) hypertension; I73.9 Peripheral vascular disease, unspecified; R91.8 Other nonspecific abnormal finding of lung field; I25.5 Ischemic cardiomyopathy; I48.0 Paroxysmal atrial fibrillation; I27.20 Pulmonary hypertension, unspecified; Z95.1 Presence of aortocoronary bypass graft; Z72.0 Tobacco use

== ENCOUNTER → 2020-09-06 | Outpatient (CLI) | payer OTHER | LOC: SJCVC 07:47 | PROVIDERS: ATTEND Internal Medicine Cardiovascular Disease | DX: R94.31 Abnormal electrocardiogram [ECG] [EKG] (principal); I25.10 Atherosclerotic heart disease of native coronary artery without angina pectoris; I10 Essential (primary) hypertension; E78.00 Pure hypercholesterolemia, unspecified; E11.51 Type 2 diabetes mellitus with diabetic peripheral angiopathy without gangrene; I34.1 Nonrheumatic mitral (valve) prolapse; I34.0 Nonrheumatic mitral (valve) insufficiency; I25.5 Ischemic cardiomyopathy; J44.9 Chronic obstructive pulmonary disease, unspecified; I42.9 Cardiomyopathy, unspecified; I27.20 Pulmonary hypertension, unspecified; F17.200 Nicotine dependence, unspecified, uncomplicated; Z79.4 Long term (current) use of insulin; Z95.1 Presence of aortocoronary bypass graft; Z90.2 Acquired absence of lung [part of]; Z79.899 Other long term (current) drug therapy; Z88.0 Allergy status to penicillin; Z91.040 Latex allergy status ==

== ENCOUNTER → 2020-10-02 | Outpatient (CLI) | payer OTHER | LOC: SJCVC 12:33 | PROVIDERS: ATTEND Nurse Practitioner Adult Health | DX: R94.31 Abnormal electrocardiogram [ECG] [EKG] (principal); I49.3 Ventricular premature depolarization; I25.10 Atherosclerotic heart disease of native coronary artery without angina pectoris; E11.9 Type 2 diabetes mellitus without complications; I48.0 Paroxysmal atrial fibrillation; I25.5 Ischemic cardiomyopathy; I34.0 Nonrheumatic mitral (valve) insufficiency; I34.1 Nonrheumatic mitral (valve) prolapse; I73.9 Peripheral vascular disease, unspecified; I11.0 Hypertensive heart disease with heart failure; I50.23 Acute on chronic systolic (congestive) heart failure; J44.9 Chronic obstructive pulmonary disease, unspecified; E78.00 Pure hypercholesterolemia, unspecified; Z72.0 Tobacco use; Z95.1 Presence of aortocoronary bypass graft; Z79.4 Long term (current) use of insulin; Z79.82 Long term (current) use of aspirin; Z79.899 Other long term (current) drug therapy ==

== ENCOUNTER → 2021-03-13 | Outpatient (CLI) | payer OTHER | LOC: SJCVCIMAG 12:24 | PROVIDERS: ATTEND Internal Medicine Cardiovascular Disease | DX: I08.1 Rheumatic disorders of both mitral and tricuspid valves (principal); R94.31 Abnormal electrocardiogram [ECG] [EKG]; I11.9 Hypertensive heart disease without heart failure; I44.7 Left bundle-branch block, unspecified; I25.10 Atherosclerotic heart disease of native coronary artery without angina pectoris; E78.00 Pure hypercholesterolemia, unspecified; E10.69 Type 1 diabetes mellitus with other specified complication; I48.0 Paroxysmal atrial fibrillation; I25.5 Ischemic cardiomyopathy; E10.51 Type 1 diabetes mellitus with diabetic peripheral angiopathy without gangrene; I73.9 Peripheral vascular disease, unspecified; J44.9 Chronic obstructive pulmonary disease, unspecified; E78.5 Hyperlipidemia, unspecified; F17.200 Nicotine dependence, unspecified, uncomplicated; Z95.1 Presence of aortocoronary bypass graft; Z91.040 Latex allergy status; Z88.0 Allergy status to penicillin; Z79.82 Long term (current) use of aspirin; Z79.899 Other long term (current) drug therapy; Z85.118 Personal history of other malignant neoplasm of bronchus and lung; Z82.49 Family history of ischemic heart disease and other diseases of the circulatory system ==

== ENCOUNTER → 2021-03-21 | Outpatient (CLI) | payer OTHER | LOC: SJCVCIMAG 07:27 | PROVIDERS: ATTEND Internal Medicine Cardiovascular Disease | DX: I70.203 Unspecified atherosclerosis of native arteries of extremities, bilateral legs (principal); E11.9 Type 2 diabetes mellitus without complications; E78.00 Pure hypercholesterolemia, unspecified; F17.200 Nicotine dependence, unspecified, uncomplicated; Z88.0 Allergy status to penicillin; Z91.040 Latex allergy status; Z95.1 Presence of aortocoronary bypass graft; Z79.82 Long term (current) use of aspirin; Z79.4 Long term (current) use of insulin; Z79.899 Other long term (current) drug therapy ==

== ENCOUNTER → 2021-10-03 | Outpatient (CLI) | payer OTHER ==
[~2021-10-03] VITALS: Ht 162.6 cm; Wt 78.9 kg
[~2021-10-03] MED LIST changes: +CLOPIDOGREL75 MG PO; +CRESTOR40 MG PO; +OXTELLAR XR300 MG PO; +TORSEMIDE20 MG PO; +[UNRECOGNIZED DRUG - OTHER] INJECTION
[2021-10-03 07:29] VITALS: BP 127/52
[2021-10-03 07:36] LABS: HEMATOCRIT 41.9 % (37.0-47.0); HEMOGLOBIN 13.7 gm/dL (12.0-15.0); MCH 29.5 pg (26.0-34.0); MCHC 32.7 g/dL (28.0-37.0); MCV 90.2 fL (80.0-100.0); RBC 4.64 mil/uL (4.20-5.00); RDW 15.6 % (10.5-14.5); WBC 5.9 thou/uL (4.0-11.0)
[2021-10-03 07:44] LABS: CALCIUM 8.7 mg/dL (8.5-10.1); CREATININE 0.9 mg/dL (0.6-1.0); POTASSIUM 4.7 mmol/L (3.5-5.1)
--- NOTE | 2021-10-03 12:07 | NUR ---
CONTACTED [facility] FOR MID LEVEL TO CALL BACK WITH ORDER FOR PO PAIN MEDS. PT C/O CHRONIC BACK PAIN AND UNABLE TO LAY FLAT FOR PERIODS OF TIME.
--- NOTE | 2021-10-03 13:00 | NUR ---
PT STATES NO RELEIF OF BACK PAIN. PT PUT IN MINIMAL REVERSE TRENDELENBURG WITH PT STATING SOME RELEIF
--- NOTE | 2021-10-03 13:09 | NUR ---
BLOOD SUGAR 235MG/DL
--- NOTE | 2021-10-03 14:31 | NUR ---
PT A/OX3 RESTING WITH C/O MILD BACK PAIN. AT BEDSIDE.
--- NOTE | 2021-10-03 17:48 | CATHLAB ---
[facility] [place] [address] [place] [address] INVASIVE PROCEDURE REPORT Name: HIRAM JC [id number] Admission: 10/03/21 Attend Phys: Kashmir Garay MD Discharge: Date of : 64 Report #: [id number] THIS REPORT FOR: cc: Robert Humphries James L. DO Mancuso, Gerald M. MD [facility] ~ APPROVED REPORT Study performed: 10/03/2021 10:06:32 Patient Details Patient Status: Out-Patient Room #: The patient is a 61 year-old female Event Personnel Onesimo Reece Landscape Architect, Faraz Ji RN RN, Yoli Garza RTR Scrub, Jose Raul Teixeira RTR Monitor Procedures Performed Left Heart Cath Coronaries, Bypass Grafts [id number] LHCCORCABG Art Access - L femoral artery* Hemostasis with Manual pressure 91638 Initial Mod Sed Same Phys/QHP Gr5y [id number] Indication Chest pain Procedure Narrative The patient was brought electively to the Cardiac Catheterization Laboratory and was prepped and draped in a sterile manner. A SHEATH BRITE-TIP 6F X 23CM ([id number]) sheath was inserted into the LFA^. Coronary angiography was performed using coronary diagnostic catheters. The right coronary system was accessed and visualized with a 6FR RCB #[id number] catheter. The left coronary system was accessed and visualized with a JL4 catheter. The left ventricle was accessed and visualized with a PIGTIAL catheter. Left ventricular/Aortic Valve gradient assessed via catheter pullback. The patient tolerated the procedure well and there were no complications associated with the procedure. There was no hematoma. This was a combo case with Dr Garay. He used 113ml of Visipaque and 12:29mins of fluoro. For the LERO the mGycm2 were 65037.26 and mGy were 915. He ordered 2mg of Versed and 100mcg of Fentanyl to be given during his case. Intraoperative Conscious Sedation [facility] [address] [place] [address] INVASIVE PROCEDURE REPORT Name: HOSEAHIRAM L Room #: REG [facility]#: [id number] Admission: 10/03/21 Attend Phys: Kashmir Garay, Discharge: Date of : 64 Report #: [id number] Sedation start time: 8:25 Case end Time: 10:52 Fentanyl 175 mcg Versed 2 mg Fluoro Time: 17.49 minutes Dose: DAP 26063.30 cGycm2 1457 mGy Contrast Type and Amount: Visipaque 113 ml Hemodynamics The aortic pressure is 179/46 mmHg with a mean of 65 mmHg. The left ventricular pressure is 182/11 mmHg with a mean of mmHg. The left ventricular end diastolic pressure is 40 mmHg. Pullback from the left ventricle to the aorta revealed no gradient across the aortic valve. PCI Technique Lesion Percutaneous coronary intervention was performed on the Superficial Femoral. PCI Technique Lesion 2 Percutaneous Coronary Intervention was performed on the Common iliac. Conclusion #1 Normal left ventricular size with inferior basilar hypokinesis EF 45 to 50% range. #2 left main is long and mild distal tapered narrowing no occlusive disease giving rise to LAD and circumflex. #3 the LAD is diffusely diseased and occludes proximally after a septal division human resources manager. There is a small to moderate diagonal branch which remains widely patent. #4 circumflex OM is nondominant with mild disease in small caliber vessels #5 dominant right coronary artery occluded PDA is collaterally filled via the left system. #6 PDA SVG graft is occluded ostially. #7 a OCHOA graft is intact and widely patent and briskly fills in LAD which extends around the apex. Septal perforators to give some collateral filling to the PDA. Recommendations and plan: Continue aggressive risk factor modification. There is no indication for coronary intervention there [address] [address] INVASIVE PROCEDURE REPORT Name: HIRAM JC Room #: [facility]#: [id number] Admission: 10/03/21 Attend Phys: Kashmir aGray, Discharge: Date of : 64 Report #: [id number] is been minimal progression of this disease. Peripheral vascular intervention was performed by Dr. Garay see his dictation. <ELECTRONICALLY SIGNED> By: Onesimo Reece MD, [facility] 10/03/21 1748 [id number] Onesimo Reece MD, [facility] /INF
== END | disposition home or self-care (01) ==
LOC: CATH 06:28
PROVIDERS: ATTEND Nuclear Medicine Nuclear Cardiology
DX: R07.9 Chest pain, unspecified (principal); I25.810 Atherosclerosis of coronary artery bypass graft(s) without angina pectoris; I70.213 Atherosclerosis of native arteries of extremities with intermittent claudication, bilateral legs; I70.1 Atherosclerosis of renal artery; I11.0 Hypertensive heart disease with heart failure; I50.9 Heart failure, unspecified; I25.10 Atherosclerotic heart disease of native coronary artery without angina pectoris; E11.9 Type 2 diabetes mellitus without complications; E78.5 Hyperlipidemia, unspecified; J44.9 Chronic obstructive pulmonary disease, unspecified; I25.2 Old myocardial infarction; Z98.890 Other specified postprocedural states; Z79.899 Other long term (current) drug therapy; Z79.4 Long term (current) use of insulin; Z95.1 Presence of aortocoronary bypass graft